=== PATIENT | male | born 1930 | race Caucasian/White ===

== ENCOUNTER 2016-06-09 20:07 | Inpatient (IN) | payer MEDICARE, OTHER ==
--- NOTE | ~2016-06-09 | HP ---
History And Physical [address] [place]. [address] NAME: JERRI WILKINSON : 32 STATUS : ADM IN [facility]#: [id number] AGE: 85 ADM/REG DATE : 06/09/16 MR#: [id number] REPORT SERV DATE: 06/09/16 DICTATED BY: ANISH ARCHER DATE: 06/09/16 REPORT STATUS : Draft TRANSCRIBED BY: EMERSON DATE: 06/09/16 DATE OF ADMISSION: 06/09/2016 CHIEF COMPLAINT: Palpitations with lightheadedness. HISTORY OF PRESENT ILLNESS: This is an 85-year-old male with a past medical history of coronary artery disease status post CABG x5 in [address] Gualberto Alvarado, courier, also history of hypertension. The patient states for the past two days, he has experienced palpitations with intermittent lightheadedness. He denies any chest pain. No subjective fever or chills. No nausea or vomiting. No diaphoresis, but does state that he has occasional epigastric discomfort, which is also intermittent. The patient states that he drinks approximately two cups of caffeinated coffee in the morning every day. He was seen in the ER by Dr. Grey Montaño, who ordered an EKG with findings of persistent bigeminy and also Cardiology was called and consulted, and Dr. Montaño spoke to Dr. Joaquin who states that he will evaluate the patient. Currently at this time, the patient has no symptoms of dizziness nor lightheadedness. Denies any shortness of breath. No chest pain. No cough. REVIEW OF SYSTEMS: Please refer to HPI. PAST MEDICAL HISTORY: GERD, hypertension, hyperlipidemia, prostate cancer, status post prostatectomy, coronary artery disease with CABG x5, 2012. PAST SURGICAL HISTORY: Hernia repair x2, cataract surgery, thoracentesis, and a as mentioned above. SOCIAL HISTORY: Quit tobacco abuse 75 years ago. No alcohol. No illicit drugs. Usually very active and volunteers weekly and works in the yard. FAMILY HISTORY: Cancer and coronary artery disease, brother. ALLERGIES: ALLERGIES TO MORPHINE CAUSES TONGUE SWELLING. HOME MEDICATIONS: Reviewed, please refer to medication reconciliation per pharmacy. PHYSICAL EXAMINATION: VITAL SIGNS: Temp of 98.2, blood pressure 151/63 with a pulse ranging 43 to 65, respiration of 20, saturating 99% on room air. GENERAL: The patient is alert oriented x3. Well nourished. No distress. HEENT: Pupils equal, round, and reactive to light. Extraocular muscles are intact. Anicteric sclerae. CARDIOVASCULAR: S1, S2. No appreciated rubs or gallops. No JVD with occasional PVC. RESPIRATORY: Clear to auscultation bilaterally. No wheezes or crackles. No signs of tachypnea. ABDOMEN: Positive bowel sounds. Soft, nontender. No rebound. No fluid wave. EXTREMITIES: 2+ pulse bilaterally. No edema. History And Physical [address] [address] NAME: JERRI WILKINSON : 32 STATUS : ADM IN [facility]#: [id number] AGE: 85 ADM/REG DATE : 06/09/16 MR#: [id number] REPORT SERV DATE: 06/09/16 DICTATED BY: ANISH ARCHER DATE: 06/09/16 REPORT STATUS : Draft TRANSCRIBED BY: EMERSON DATE: 06/09/16 NEURO: Cranial nerves 2 through 12 grossly intact. Moves all four extremities. No neuro focal deficits. IMAGING: Chest x-ray with no acute infiltrate. EKG, the sinus rhythm with first degree AV block. No ST-elevation and positive PVCs. LABORATORY DATA: Sodium 141, potassium 3.8 with a chloride of 101, bicarb of 30, BUN 34, creatinine of 2.27 with a glucose of 116. Troponin less than 0.02. White count of 5.3 with a hemoglobin of 12.2, platelet count 180. INR of 1.2. ASSESSMENT AND PLAN: 1. Symptomatic arrhythmia/bigeminy. 2. Acute on chronic kidney disease. 3. Coronary artery disease/coronary artery bypass graft. The patient will be admitted to cardiac telemetry. We will initiate IV fluids for hydration and check a renal ultrasound for his acute on chronic renal failure. The patient will be seen by Cardiology for his arrhythmia. Also recommended the patient to decrease caffeinated beverages. We will hold any JO inhibitors or diuretic at this time while hydrating. Also we will check a TSH. The patient will be admitted to my colleague who will attend to this patient's care. LUPILLO/EMERSON Anish Archer M.D. / [id number] CC: Cristian White M.D. Dannis Hood Jr., M.D.
--- NOTE | ~2016-06-09 | CN ---
Consultation Report [facility] [address] [place]. [address] NAME: JERRI WILKINSON : 32 STATUS : ADM IN PAT#: [id number] AGE: 85 ADM/REG DATE : 06/09/16 MR#: [id number] REPORT SERV DATE: 06/10/16 DICTATED BY: RYAN ALVARADO JR. DATE: 06/10/16 REPORT STATUS : Draft TRANSCRIBED BY: EMERSON DATE: 06/10/16 DATE OF CONSULTATION: REFERRING PHYSICIANS: 1. Kennedy Molina M.D. 2. Zach Vargas M.D. INDICATION FOR CONSULTATION: Symptomatic PVCs, palpitations. 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 He had been evaluated by me on 04/22 of this year and had been doing well, but was moderately hypertensive. At that time, we refilled medications and discussed salt restriction. He now presents with fatigue, malaise, and vague left substernal chest pressure as in the past with palpitations and dizziness upon standing. He denies any fevers or chills. He denies any dysuria or frequency. REVIEW OF SYSTEMS: A 10-point review of systems otherwise is unremarkable. ALLERGIES: TO MORPHINE. MEDICATIONS: Have included aspirin 81 mg daily, Colace 100 mg b.i.d., MiraLAX powder, Nexium 40 mg daily, Lipitor 10 mg daily, triamterene/hydrochlorothiazide 37.5/25 combination daily, amlodipine 10 mg daily, and losartan 100 mg daily. PAST MEDICAL HISTORY: Notable for history of coronary artery disease, history of prior CAB with mitral valve repair, maze procedure, persistent pleural effusions, history of persistent bradycardia in the 50s, obesity, dyslipidemia, paroxysmal atrial fibrillation, history of prostate cancer, gastroesophageal reflux, and hypertension. PAST SURGICAL HISTORY: Notable for prior cardiac catheterization, prior CAB with a left atrial Maze, history of EP ablation procedure, history of radical prostatectomy, cataract surgery, double inguinal herniorrhaphy, and cholecystectomy. SOCIAL HISTORY: Notable for absence of current tobacco or ethanol use. FAMILY HISTORY: Notable for heart disease, hypertension, and dyslipidemia. PHYSICAL EXAMINATION: VITAL SIGNS: Pulse is 54, respirations are 14. The patient is afebrile. Blood pressure is 165/72, repeated 114/66. HEENT: Unremarkable. NECK: Supple without jugular venous distention or new carotid bruit. Consultation Report [id number] [facility] [address] NAME: JERRI WILKINSON : 32 STATUS : ADM IN PAT#: [id number] AGE: 85 ADM/REG DATE : 06/09/16 MR#: [id number] REPORT SERV DATE: 06/10/16 DICTATED BY: RYAN ALVARADO JR. DATE: 06/10/16 REPORT STATUS : Draft TRANSCRIBED BY: EMERSON DATE: 06/10/16 CARDIOVASCULAR SYSTEM: Regular rate and rhythm. S4. No S3. LUNGS: Clear. ABDOMEN: Benign without hepatomegaly. Bowel sounds are normal. EXTREMITIES: 1+ with no pedal edema. NEUROLOGIC: He is grossly intact. LABORATORY DATA: EKG is notable for sinus bradycardia, first-degree AV block, incomplete right bundle-branch block, left anterior fascicular block and LVH, which does not appear to be significantly changed from prior tracings. Recent echo performed in my office revealed an EF of 50%-55% with no obvious segmental wall motion abnormality, mild concentric left ventricular hypertrophy, prior mitral valve repair with [id number] mitral insufficiency, but no evidence of mitral stenosis, aortic valve sclerosis without stenosis, tricuspid insufficiency with elevated pulmonary pressure of 54 mmHg. This study was performed on April 30 of this year. Sodium 143, potassium 3.2, bicarbonate of 105, BUN of 30, creatinine of 2.27, repeated at 1.9, calcium of 8.4, glucose of 125, and GFR of 36. Magnesium of 2.2. H and H 12.2 and 35.9, white count of 2.9. Troponin is less than 0.02 x2. TSH of 2.4. Chest x-ray is otherwise unremarkable and notable for cardiomegaly. IMPRESSION: 1. An 85-year-old white male with persistent sinus bradycardia. 2. Premature ventricular contractions, occasional to frequent, which has been monitored in our office. 3. Suspected [id number] volume depletion, for which diuretic therapy is no longer a viable alternative. 4. Hypertension and hypertensive heart disease. 5. Left upper thoracic anterior precordial chest pain, for which coronary artery disease cannot be completely excluded. Pain in the past has been attributable to intercostal neuralgia. 6. Dyslipidemia. 7. Sinoatrial node dysfunction. PLANS AND RECOMMENDATIONS: 1. Supplementation of potassium as hypokalemia is noted. 2. Hydration. 3. Evaluation of nutritional status. 4. Discontinuation of diuretics. 5. We will follow with you in the a.m. We will order a nuclear stress. If nuclear stress is negative and symptoms improved with hydration and electrolyte supplementation, then discharge with close followup may be in order with cardiac risk factor reduction. Consultation Report [id number] [facility] [place]. [address] NAME: JERRI WILKINSON : 32 STATUS : ADM IN PAT#: [id number] AGE: 85 ADM/REG DATE : 06/09/16 MR#: [id number] REPORT SERV DATE: 06/10/16 DICTATED BY: RYAN ALVARADO JR. DATE: 06/10/16 REPORT STATUS : Draft TRANSCRIBED BY: EMERSON DATE: 06/10/16 /EMERSON Ryan Alvarado Jr., M.D. / [id number] CC: Cristian White M.D.
--- NOTE | ~2016-06-09 | DS ---
Discharge Summary [address] [place]. [address] NAME: JERRI HERNADEZ : 32 STATUS : DIS IN PAT#: [id number] AGE: 85 ADM/REG DATE : 06/09/16 MR#: [id number] REPORT SERV DATE: 06/12/16 DICTATED BY: PAYAL QUINTANA DATE: 06/11/16 REPORT STATUS : Draft TRANSCRIBED BY: MODL DATE: 06/11/16 ADMISSION DATE: 06/09/2016 DISCHARGE DATE: 06/11/2016 REASON FOR ADMISSION: SANIA on CKD stage III along with palpitations. HISTORY OF PRESENT ILLNESS: Please refer to Dr. Hassan's history and physical dated 06/09/2016 for complete details regarding the patient's admission. In brief, the patient was admitted to the Hospitalist Service for his acute kidney injury and history of having palpitations. HOSPITAL COURSE: The patient had an uncomplicated hospital course. Dr. Hassan admitted the patient and held his diuretics and his losartan. He was given IV fluids. Dr. Alvarado, his community health nurse supervisor, was consulted and recommended getting a nuclear stress test for his palpitations. The stress test showed that the patient achieved a Min stage 2 75% MPHR at 7 METs. No anginal chest pain. No EKG changes of ischemia. Imaging demonstrated no ischemia as below with a post exercise EF of greater than 60%, overall low risk. The patient states that his abdominal pain has improved and that he has had no palpitations. Dr. Alvarado had signed off and recommended followup appointment with him in four weeks. His SANIA had fully resolved as his creatinine has come down to 1.5, which is his baseline. Dr. Alvarado also recommended not using any ACEs, ARBs, or diuretics at this point in time. The patient has improved and will be discharged home in a stable condition. DISCHARGE DIAGNOSES: Acute kidney injury on chronic kidney disease stage III, now resolved; palpitations, resolved; coronary artery disease, status post coronary artery bypass graft. PROCEDURES: Include nuclear stress test, consultation with Dr. Alvarado. DISCHARGE MEDICATIONS: Include amlodipine 5 mg once a day, aspirin 81 mg daily, Lipitor 10 mg daily, Colace 100 mg p.r.n., MiraLAX p.r.n., Nexium 40 mg daily, and Artificial Tears. The patient is to hold his hydrochlorothiazide, triamterene, and losartan. FOLLOWUP: He will follow up with Dr. Alvarado in four weeks. Spending over 30 minutes discharge planning and coordination of care of Mr. Hernadez. RAJ/EMERSON Payal Quintana MD / [id number] CC: Discharge Summary [address] [address] NAME: JERRI HERNADEZ : 32 STATUS : DIS IN PAT#: [id number] AGE: 85 ADM/REG DATE : 06/09/16 MR#: [id number] REPORT SERV DATE: 06/12/16 DICTATED BY: PAYAL QUINTANA DATE: 06/11/16 REPORT STATUS : Draft TRANSCRIBED BY: MODL DATE: 06/11/16 MD Zach Jones M.D. Dannis Hood Jr., M.D.
[2016-06-09 19:50] LABS: BASOPHILS 0.6 %; BASOPHILS ABSOLUTE 0.03 10/3/uL (0.0-0.16); EOSINOPHILS 2.2 %; EOSINOPHILS ABSOLUTE 0.12 10/3/uL (0.0-0.53); HEMATOCRIT 35.9 % (40.0-51.0); HEMOGLOBIN 12.2 g/dL (13.6-17.8); IMMATURE GRANULOCYTES 0.2 %; IMMATURE GRANULOCYTES ABSOLUTE 0.01 10/3/uL (0.0-0.11); LYMPHOCYTES ABSOLUTE 1.39 10/3/uL (0.67-4.30); MEAN CORPUSCULAR HEMOGLOB 29.5 pg (26.0-34.0); MEAN CORPUSCULAR VOLUME 86.7 fL (80-100); MEAN PLATELET VOLUME 9.4 fL (9.2-13.0); MONOCYTES 16.9 %; NEUTROPHILS 54.1 %; NEUTROPHILS ABSOLUTE 2.89 10/3/uL (2.02-8.40); PLATELET COUNT 180 10/3/uL (150-400); RBC DISTRIBUTION WIDTH 13.5 % (12.0-16.0); RED CELL COUNT 4.14 10/6/uL (4.7-6.1); WHITE BLOOD CELLS 5.3 10/3/uL (4.5-10.5)
[2016-06-09 19:52] LABS: MANUAL DIFF NO %
[2016-06-09 19:55] LABS: INTERNATIONAL NORMAL RATI 1.2 UNITS (-); PROTIME (NOT ORD) 14.6 SEC (12.0-14.5)
[2016-06-09 19:56] LABS: PARTIAL THROMBO TIME 30.7 SEC (22.5-37.2)
[2016-06-09 20:05] LABS: BUN (BLOOD UREA NITROGEN) 34 MG/DL (6-23); CALCIUM, SERUM 8.2 MG/DL (8.5-10.4); CHEST PAIN PROFILE TAT 0 Hrs 21 Mins; CHLORIDE, SERUM 101 MMOL/L (96-112); CO2 (CARBON DIOXIDE) 30 MMOL/L (24-34); CREATININE 2.27 MG/DL (0.70-1.30); GFR AFRICAN AMERICAN 30 ML/MIN (>=60); GFR NON AFRICAN AMERICAN 26 ML/MIN (>=60); GLUCOSE, SERUM 116 MG/DL (60-99); POTASSIUM, SERUM 3.8 MMOL/L (3.5-5.3); SODIUM, SERUM 141 MMOL/L (135-148); TROPONIN I <0.02 NG/ML (<0.05)
[~2016-06-09 20:07] MED LIST: AMITIZA8 MCG PO; ASAB PO; C25 PO; CITRUCEL; CITRUCELSF PO; CONSTULOSE PO; COREG3 PO; COZAAR100 MG PO; DRY EYE DROPS OPH; DSS PO; DSS50 PO; DYAZIDE PO; HALF81 PO; KLOR-CON M2020 MEQ PO; KRISTALOSE20 GM PO; L40 PO; LES20 PO; LESXL80 PO; LIPITOR10 PO; LISINOPRIL40 MG PO; MAX25 PO; MIRALAX POWDER1 PKT PO; MIRALAXPKT PO; NEXIUM40 PO; NORV10 PO; NORV5 PO; PACERONE200 MG PO; PRIN10 PO; RYTHMOL150 MG PO; RYTHMOL225 MG PO; SUCR PO; [UNRECOGNIZED DRUG - CODE]
[2016-06-09] MEDS ORDERED: MAX25 PO (20:30)
[2016-06-09] MEDS ORDERED: TEARS PLUS OPH (20:30)
[2016-06-09] MEDS ORDERED: NORV5 PO (20:38)
[2016-06-10 04:44] LABS: CALCIUM, SERUM 8.4 MG/DL (8.5-10.4); CHLORIDE, SERUM 105 MMOL/L (96-112); CO2 (CARBON DIOXIDE) 27 MMOL/L (24-34); CREATININE 1.92 MG/DL (0.70-1.30); GFR AFRICAN AMERICAN 36 ML/MIN (>=60); GFR NON AFRICAN AMERICAN 31 ML/MIN (>=60); GLUCOSE, SERUM 125 MG/DL (60-99); PHOSPHORUS, SERUM 2.9 MG/DL (2.5-4.5); POTASSIUM, SERUM 3.2 MMOL/L (3.5-5.3); SODIUM, SERUM 143 MMOL/L (135-148); TROPONIN I <0.02 NG/ML (<0.05)
[2016-06-10 04:46] LABS: BUN (BLOOD UREA NITROGEN) 30 MG/DL (6-23); CK-MB 2.2 NG/ML; CPK 99 U/L (0-200)
[2016-06-11 05:26] LABS: BASOPHILS 0.7 %; BASOPHILS ABSOLUTE 0.03 10/3/uL (0.0-0.16); EOSINOPHILS 8.1 %; EOSINOPHILS ABSOLUTE 0.37 10/3/uL (0.0-0.53); HEMATOCRIT 33.3 % (40.0-51.0); HEMOGLOBIN 11.3 g/dL (13.6-17.8); IMMATURE GRANULOCYTES 0.2 %; IMMATURE GRANULOCYTES ABSOLUTE 0.01 10/3/uL (0.0-0.11); LYMPHOCYTES 30.8 %; MEAN CORPUS HGB CONC 33.9 g/dL (32.0-36.0); MEAN CORPUSCULAR HEMOGLOB 29.2 pg (26.0-34.0); MEAN PLATELET VOLUME 9.8 fL (9.2-13.0); MONOCYTES 16.9 %; MONOCYTES ABSOLUTE 0.77 10/3/uL (0.21-1.20); NEUTROPHILS 43.3 %; NEUTROPHILS ABSOLUTE 1.97 10/3/uL (2.02-8.40); PLATELET COUNT 166 10/3/uL (150-400); RBC DISTRIBUTION WIDTH 13.6 % (12.0-16.0); RED CELL COUNT 3.87 10/6/uL (4.7-6.1); WHITE BLOOD CELLS 4.6 10/3/uL (4.5-10.5)
[2016-06-11 05:29] LABS: MANUAL DIFF NO %
[2016-06-11 05:48] LABS: CALCIUM, SERUM 8.1 MG/DL (8.5-10.4); CHLORIDE, SERUM 106 MMOL/L (96-112); CO2 (CARBON DIOXIDE) 27 MMOL/L (24-34); CREATININE 1.55 MG/DL (0.70-1.30); FREE T4 1.24 NG/DL (0.76-1.46); GFR AFRICAN AMERICAN 47 ML/MIN (>=60); GFR NON AFRICAN AMERICAN 41 ML/MIN (>=60); GLUCOSE, SERUM 105 MG/DL (60-99); POTASSIUM, SERUM 3.3 MMOL/L (3.5-5.3); SODIUM, SERUM 141 MMOL/L (135-148)
[2016-06-11 05:53] LABS: BUN (BLOOD UREA NITROGEN) 24 MG/DL (6-23)
== END 2016-06-11 17:12 | disposition home or self-care (01) | DRG 309 ==
LOC: ER 20:07 → 7NO 21:19
PROVIDERS: Hospitalist; Internal Medicine Cardiovascular Disease
DX: R00.2 Palpitations (principal); N17.9 Acute kidney failure, unspecified; Z95.1 Presence of aortocoronary bypass graft; I12.9 Hypertensive chronic kidney disease with stage 1 through stage 4 chronic kidney disease, or unspecified chronic kidney disease; N18.3 Chronic kidney disease, stage 3 (moderate); I25.10 Atherosclerotic heart disease of native coronary artery without angina pectoris; K21.9 Gastro-esophageal reflux disease without esophagitis; E78.5 Hyperlipidemia, unspecified; Z85.46 Personal history of malignant neoplasm of prostate; Z87.891 Personal history of nicotine dependence
CPT/HCPCS: 71010; 76775; 78452; 80048; 82550; 82553; 83735; 84100; 84132; 84439; 84443; 84484; 85025; 85610; 85730; 93005; 93017; 99285; A9270-GY; A9502; J0360

== ENCOUNTER 2016-08-22 12:53 | Emergency (ER) | payer MEDICARE, OTHER ==
[~2016-08-22 12:53] MED LIST changes: +TEARS PLUS OPH
[2016-08-22 13:27] LABS: CALCIUM, SERUM 8.9 MG/DL (8.5-10.4); CHLORIDE, SERUM 105 MMOL/L (96-112); CO2 (CARBON DIOXIDE) 29 MMOL/L (24-34); CREATININE 1.53 MG/DL (0.70-1.30); GFR AFRICAN AMERICAN 48 ML/MIN (>=60); GFR NON AFRICAN AMERICAN 41 ML/MIN (>=60); GLUCOSE, SERUM 96 MG/DL (60-99); POTASSIUM, SERUM 3.5 MMOL/L (3.5-5.3); SODIUM, SERUM 141 MMOL/L (135-148)
[2016-08-22 13:29] LABS: BUN (BLOOD UREA NITROGEN) 20 MG/DL (6-23)
== END 2016-08-22 14:29 | disposition home or self-care (01) ==
LOC: ER 12:53
PROVIDERS: Emergency Medicine
DX: I10 Essential (primary) hypertension (principal); Z95.1 Presence of aortocoronary bypass graft; Z88.5 Allergy status to narcotic agent; Z79.82 Long term (current) use of aspirin; Z79.899 Other long term (current) drug therapy
CPT/HCPCS: 80048; 93005; 99283; A9270-GY